=== PATIENT | male | born 1970 | race Caucasian/White ===

== ENCOUNTER 2022-04-17 21:40 | Emergency (ER) | payer OTHER, SELFPAY ==
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
[2022-04-17 22:44] LABS: Basophils Absolute Auto 0.09 K/mm3 (0.00-0.10); Basophils Percent Auto 1.1 % (0.0-1.0); Eosinophils Absolute Auto 0.34 K/mm3 (0.02-0.50); Eosinophils Percent Auto 4.3 % (1.0-6.0); Hematocrit 44.9 % (40.0-54.0); Hemoglobin 15.3 g/dL (14.0-18.0); Immature Granulocyte Absolute 0.03 K/mm3 (0.00-0.00); Immature Granulocyte Percent A 0.4 % (0.0-0.0); Lymphocytes Percent Auto 46.4 % (18.0-42.0); Mean Corpuscular HGB Conc 34.1 g/dL (32.0-36.0); Mean Corpuscular Hemoglobin 32.8 pg (27.0-31.0); Mean Corpuscular Volume 96.4 fL (78.0-102.0); Monocytes Percent Auto 7.5 % (2.0-11.0); Neutrophils Absolute Auto 3.2 K/mm3 (1.7-7.2); Neutrophils Percent Auto 40.3 % (50.0-70.0); Platelet Count Result 212 K/mm3 (150-420); Red Blood Count 4.66 M/mm3 (4.70-6.10)
--- NOTE | 2022-04-17 22:49 | PC.NURSE ---
Pt agreed to lab draw and provided urine sample while in the restroom. Pt continues to refuse to change into scrubs. Pt continues to refuse physical examination and vitals. Pt continuously making remarks that he is a stupid loser and it's all over for him because this is his 4th DUI.
[2022-04-17 23:06] LABS: Alanine Aminotransferase 26 U/L (16-63); Albumin Level 3.9 g/dL (3.4-5.0); Alkaline Phosphatase 70 U/L (46-116); Anion Gap 11 mmol/L (8-16); Aspartate Amino Transferase 21 U/L (15-37); Bilirubin,Total 0.4 mg/dL (0.00-1.00); Blood Urea Nitrogen 14 mg/dL (7-18); Calcium 8.7 mg/dL (8.5-10.1); Carbon Dioxide 25 mmol/L (21-32); Chloride 106 mmol/L (98-108); Estimated Glomerular Filt Rate > 60; Glucose 105 mg/dL (70-99); Osmolality Calculated 294 mOsm/kg (285-295); Potassium 3.6 mmol/L (3.5-5.1); Sodium 142 mmol/L (136-145); Thyroid Stimulating Hormone 2.72 uIU/mL (0.36-3.74); Total Protein 7.9 g/dL (6.4-8.2)
[2022-04-17 23:07] LABS: Ethanol 279 mg/dL (0-6)
[2022-04-17 23:08] VITALS: BP 137/93; PULSE 95; RESP 16; TEMP 36.6; O2SAT 98
[2022-04-17 23:08] LABS: Amphetamine Screen Urine Negative (Negative); Barbiturate Screen Urine Negative (Negative); Benzodiazepines Screen Urine Negative (Negative); Cannabinoid Screen Urine Positive (Negative); Cocaine Screen Urine Negative (Negative); Methadone Screen Urine Negative (Negative); Opiate Screen Urine Negative (Negative); Phencyclidine Screen Urine Negative (Negative)
--- NOTE | 2022-04-17 23:09 | PC.NURSE ---
REPORT FROM KRISTIE CRUZ IS SITTING WITH PT. PT HAS LIGHTS OFF, BLANKET, TV ON AND EYES CLOSED LYING ON STRETCHER. VITAL SIGNS OBTAINED, PT STATES HE DOES NOT NEED THEM, HOWEVER DOES ALLOW THEM TO BE OBTAINED WITHOUT INCIDENT. WATER WAS PROVIDED. LAB REPORTS ETOH OF 279 AT THIS TIME, ERP IS NOTIFIED. NAD NOTED. WILL CONTINUE TO MONITOR.
--- NOTE | 2022-04-18 00:44 | PC.NURSE ---
PT IS SLEEPING ON STRETCHER IN EXAM ROOM AT THIS TIME. SITTER AT BEDSIDE. NAD NOTED. PT IS TO HAVE ETOH REDRAWN AROUND 0700. WILL CONTINUE TO MONITOR.
--- NOTE | 2022-04-18 03:52 | PC.NURSE ---
NO CHANGE IN PT STATUS AT THIS TIME. NAD NOTED. SITTER REMAINS AT BEDSIDE, PT RESTING WITHOUT DISTRESS. WILL CONTINUE TO MONITOR.
[2022-04-18 04:07] VITALS: BP 137/96; PULSE 88; RESP 16; O2SAT 98
--- NOTE | 2022-04-18 04:07 | PC.NURSE ---
PT UP TO RR WITH STEADY GAIT, PT SITS IN CHAIR IN RR WHEN FINISHED AND REFUSED TO ANSWER STAFF. STAFF ENTERED RR TO FIND PT SITTING IN THE CHAIR. PT THEN RETURNS TO HIS EXAM ROOM WITHOUT INCIDENT, ASKS FOR WATER AND IT WAS PROVIDED, THEN PT REFUSED IT. PT VS OBTAINED WITHOUT DIFFICULTY, PT IS LYING BACK ON STRETCHER AT THIS TIME WITH BLANKETS. PT DECLINES ANY ADDITIONAL NUTRITION, BLANKETS AT THIS TIME. SITTER AT BEDSIDE. PT GETS UP OFF STRETCHER, DRINKING WATER AND PACING IN EXAM ROOM. PT REPORTS NONE OF THIS MATTERS ANYWAY, I WILL BE IN 10 MINUTES. WHEN ASKED WHY HE WOULD BE HE REPORTS I WILL KILL MYSELF WHEN ASKED HOW, I DON'T HAVE ANY IDEA, I WILL FIGURE SOMETHING OUT. PT IS NOT ANGRY OR AGITATED. PT ASKS WHY ARE YOU BEING SO NICE TO ME? I AM A LOOSER. PT IS SPEAKING WITH SITTER AT THIS TIME, AND HE LIES BACK ON HIS STRETCHER. WILL CONTINUE TO MONITOR.
--- NOTE | 2022-04-18 04:33 | PC.NURSE ---
PT RETURNS TO RR, LOCKS DOOR. STAFF ENTERS RR TO FIND PT STANDING IN THE ROOM WITH HANDS IN HIS POCKETS AND LIGHTS OFF. WHEN ASKED PT TO CHANGE INTO SCRUBS, PT REFUSES AND RETURNS TO EXAM ROOM. PT IS ADVISED OF POLICIES AND PLAN OF CARE. PT CONTINUES TO REFUSE TO CHANGE INTO SCRUBS. PER PREVIOUS RN, JABIER SEARCHED PT, REMOVED ALL OTHER BELONGINGS AND PT IS IN HIS OWN T-SHIRT AND PANTS. SHOES, PHONE AND OTHER BELONGINGS ARE SECURED IN [facility] ROOM. PT IS UP AND DOWN ON STRETCHER, PACING IN ROOM AT TIMES. SITTER REMAINS AT BEDSIDE. WILL CONTINUE TO MONITOR. PT REPORTS HE HAS NEVER ATTEMPTED TO HARM HIMSELF BEFORE, HAS NOT SEEN A COUNSELOR OR PSYCHIATRIST, PT REPORTS HE DOES NOT HAVE A PLAN. I HAVE LIVED WITH BEING AN ALCOHOLIC MY ENTIRE LIFE AND I AM TIRED OF IT. PT WAS BROUGHT IN BY JABIER RODRÍGUEZ AFTER GETTING HIS 4TH DUI. PT REMAINS QUIET, PT APPEARS TO BE A LITTLE ANXIOUS AT THIS TIME. WILL CONTINUE TO MONITOR.
--- NOTE | 2022-04-18 05:40 | PC.NURSE ---
PT CONTINUES TO BE RESTLESS, SITTER AT BEDSIDE. PT CELL PHONE ALARM WAS SOUNDING, ASKED IF HE WOULD LIKE THIS RN TO CALL HIS WORK, PT DECLINES. BELONGINGS LIST COMPLETED. PT CONTINUES TO AVOID AND REFUSE TO CHANGE INTO SCRUBS. PT WANTED TO GO OUTSIDE TO SMOKE, OFFERED NICOTINE PATCH, HE DECLINED. PT DECLINES ANY MEDICATION AT THIS TIME. PT IS AWARE OF PLAN OF CARE. WILL CONTINUE TO MONITOR.
--- NOTE | 2022-04-18 06:13 | PC.NURSE ---
PT CONTINUES TO BE RESTLESS. PT IS REPEATEDLY REACHING BEHIND STRETCHER, WHEN ASKED ABOUT THIS, HE STATES HE IS NOT DOING ANYTHING. MULTIPLE TRIPS INTO PATIENTS ROOM, AND WHENEVER THE SITTER IS NOT LOOKING DIRECTLY AT HIM, HE REPEATS REACHING BEHIND. UPON EXAMINATION, NO LOOSE PARTS TO THE STRETCHER ARE NOTED. PT IS ADVISED, FOR HIS SAFETY THE STRETCHER CAN BE REMOVED AND HE CAN HAVE THE MATTRESS ON THE FLOOR. WILL CONTINUE TO MONITOR.
--- NOTE | 2022-04-18 06:32 | PC.NURSE ---
PT HAS CHANGED INTO SCRUBS, ALL BELONGINGS ARE SECURED. LAB AT BEDSIDE AT THIS TIME. SITTER REMAINS AT BEDSIDE. WILL CONTINUE TO MONITOR. PT IS EXHIBITING MANIPULATIVE BEHAVIOR, ASKED SITTER FOR WATER, SOON SHE TURNED HER HEAD, HE REACHED BACK AT THE STRETCHER, UPON EXAMINATION AT THIS POINT, PT WAS ABLE TO GET A SCREW LOOSE, THE SCREW WAS REMOVED FROM THE EXAM ROOM, ADVISED IF THIS BEHAVIOR CONTINUED, STRETCHER WOULD BE REMOVED.
--- NOTE | 2022-04-18 06:51 | PC.NURSE ---
ERP WAS AT BEDSIDE TO REASSESS PT, HE CONTINUES TO REPORT YOU ARE JUST WAISTING YOUR TIME, I AM GONNA DO IT PT REPORTS HE HAS NO PLAN. SITTER AT BEDSIDE. PT IS SITTING ON STRETCHER AT THIS TIME. WILL CONTINUE TO MONITOR.
[2022-04-18 06:52] LABS: Ethanol 155 mg/dL (0-6)
--- NOTE | 2022-04-18 07:07 | PC.NURSE ---
STRETCHER REMOVED AND MATTRESS ON THE FLOOR AT THIS TIME, DUE TO PT CONTINUING TO ATTEMPT TO REMOVE THE SCREWS FROM THE STRETCHER TO HARM HIMSELF. SITTER AT BEDSIDE. REPORT TO AGUSTINA LUJAN.
[2022-04-18 07:15] VITALS: BP 153/94; PULSE 104; RESP 20; O2SAT 94
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
--- NOTE | 2022-04-18 08:55 | PC.NURSE ---
0845 RN sitting with pt, sitter break given. pt states i just need a few seconds alone . explained to pt will not be alone, sitter at all times and/or observation per camera will be continuous. rubber gloves removed by pt, states making my hands sweat . gloves removed from room. explained to pt will need to see hands at all times. hiding with pillow. explained if does not comply, pillow will also be removed from the room for pt safety.
--- NOTE | 2022-04-18 09:39 | PC.NURSE ---
pt pacing in room, to bathroom frequently with sitter outside of door. pt gotten breakfast tray in which he refused. did drink coffee. will repeat etoh level at 10 am
--- NOTE | 2022-04-18 11:13 | PC.NURSE ---
pt continues pacing in room with sitter in room. fresh cup of coffee and chair in room per pt request. pt watching tv at times. awaiting etoh redraw level.
[2022-04-18 11:27] LABS: Ethanol 75 mg/dL (0-6)
[2022-04-18 12:16] VITALS: BP 151/100; PULSE 111; RESP 18; TEMP 36.6; O2SAT 95
--- NOTE | 2022-04-18 12:17 | PC.NURSE ---
pt removed bandaid and again scraping at left wrist with fingernail , observed on camera. pt staring at camera while doing it. RN to room, pt continues pacing in room. instructed to stop scraping wrist with fingernail. bandaid reapplied to wrist
--- NOTE | 2022-04-18 13:02 | PC.NURSE ---
[facility] staff, lanre barkley here for psych eval. pt continues pacing in rooms
--- NOTE | 2022-04-18 13:34 | PC.NURSE ---
counselor in with patient for eval. pt remains pacing in room throughout eval process.
[2022-04-18] MEDS: ONDANSETRON HCL ODT 4 MG TABLET PO ×2 (14:48→23:04)
--- NOTE | 2022-04-18 14:49 | PC.NURSE ---
Addendum entered by Rick Wright RN 04/18/22 14:50: pt continues pacing in room since 929 , will not sit or lay down. complaint of nausea. encouraged to sit or lay for awhile. pt refused. Original Note: pt continues pacing in room , will not sit or lay down.
--- NOTE | 2022-04-18 14:51 | PC.NURSE ---
pt chart faxed to [facility] for psych admission. awaiting call back for placement.
[2022-04-18 14:52] VITALS: BP 142/98; PULSE 101; RESP 20; TEMP 36.7; O2SAT 97
--- NOTE | 2022-04-18 15:12 | PC.NURSE ---
pt speaking with maximo, marketing research coordinator at [facility].
--- NOTE | 2022-04-18 15:54 | PC.NURSE ---
pt continues pacing in room, back to bathroom with sitter for observation. continues on camera observation at nurses station. chart faxed to jennifer at [facility].
--- NOTE | 2022-04-18 16:34 | PC.NURSE ---
spoke with maximo at [facility], requesting pt sign voluntary admission. pt agrees with voluntary admission , form signed. requested covid testing. pt agreed to swab. swab sent to lab. awaiting results.
--- NOTE | 2022-04-18 16:35 | PC.NURSE ---
meal offered to pt. pt refused. pt states i really dont have an appetite. denies nausea at this time.
[2022-04-18 17:06] LABS: Influenza A QL RT-PCR Negative (Negative); Influenza B QL RT-PCR Negative (Negative); RSV RNA, RT-PCR Negative (Negative); SARS-CoV-2 RNA PCR Negative (Negative)
--- NOTE | 2022-04-18 18:03 | PC.NURSE ---
spoke with maxiom at [facility]. pt to be admitted for dr ferrer. pt is to go to [facility] after 1030pm for an arrival after 1100pm. attempted to call report. per nursing lubrication supervisor, call back after 1000 pm to give report. pt and notified of same.
--- NOTE | 2022-04-18 18:31 | PC.NURSE ---
pt laying down on matress. warm blanket given with direct vision of sitter in door way. camera remains on for direct vision of pt from nurses desk
--- NOTE | 2022-04-18 19:01 | PC.NURSE ---
REPORT TO [facility]
--- NOTE | 2022-04-18 19:15 | PC.NURSE ---
Care resumed, spoke c pt about POC, he is cooperative at this time, he has a sad affect and not wanting to talk much, sitting on mattress on floor c a blanket and watching TV, Pt then will get up and pace room. Pt asked if he would like a mild antianxiety tablet as he seems anxious. Pt is agreeable to taking a pill now to help him relax a bit. Call placed to Dr Marino, order obtained.
[2022-04-18] MEDS: LORazepam (*CRX) 0.5 MG TABLET PO (19:23)
--- NOTE | 2022-04-18 19:32 | PC.NURSE ---
Pt remains under close obs., sitter at bedside, see Suicide obs flowsheet documentation.
--- NOTE | 2022-04-18 20:16 | PC.NURSE ---
Call received from [facility], report received that pt may not be able to be transferred tonight as they have no staff. May have to await til AM for transfer. They will re=evaluate staffing at around midnight and call back if pt is able to be accepted for transfer tonight. Pt is sleeping at this time c sitter remaining at bedside.
--- NOTE | 2022-04-18 21:32 | PC.NURSE ---
Pt sleeping, sitter at bedside.
[2022-04-18] MEDS: chlordiazePOXIDE (*CRX) 5 MG CAPSULE 10 MG PO (22:20)
--- NOTE | 2022-04-18 22:23 | PC.NURSE ---
Pt up again pacing room, states he can't sleep and appears anxious. Pt reports being a daily drinker. Order obtained for Librium. Pt took meds s difficulty. Sitting on mattress on floor watching TV, then up pacing again. Pt has sitter at bedside.
--- NOTE | 2022-04-18 23:06 | PC.NURSE ---
Pt in BR, nauseated, pacing room. Zofran ODT given as per order. Pt back to mattress to rest. VSS.
[2022-04-18 23:07] VITALS: BP 138/85; PULSE 88; RESP 18; TEMP 36.6; O2SAT 99
--- NOTE | 2022-04-19 00:08 | PC.NURSE ---
Pt report called to [facility], accepted for transfer to [facility]. Pt resting at this time, VSS. Addison remains at bedside.
[2022-04-19 00:09] VITALS: BP 138/74; PULSE 80; RESP 18; TEMP 36.5; O2SAT 99
--- NOTE | 2022-04-19 00:27 | PC.NURSE ---
Call page placed for [facility] for pt transfer.
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
== END 2022-04-19 00:50 ==
PROVIDERS: Emergency Medicine; Emergency Provider Emergency Medicine
DX: F10.10 Alcohol abuse, uncomplicated (principal); Y90.8 Blood alcohol level of 240 mg/100 ml or more; R45.851 Suicidal ideations; I10 Essential (primary) hypertension; F32.A Depression, unspecified; F17.210 Nicotine dependence, cigarettes, uncomplicated; F12.90 Cannabis use, unspecified, uncomplicated; Z20.822 Contact with and (suspected) exposure to COVID-19
CPT/HCPCS: 36415; 80053; 80307; 84443; 85025; 87637; 99285; A9270

== ENCOUNTER 2023-09-16 14:31 | Emergency (ER) | payer OTHER, SELFPAY ==
--- NOTE | ~2023-09-16 | CT_ITS ---
EXAMINATION: CT brain wo con DATE: 09/16/2023 14:52 INDICATION: Head injury. TECHNIQUE: Computed tomography (CT) of the head was performed without intravenous contrast. The mA wa s adjusted according to patient size. Iterative reconstruction technique was employed. The dose-lengt h product was 605.33 mGy-cm. COMPARISON: None FINDINGS: There is no intracranial hemorrhage, acute infarction, or abnormal intracranial mass lesion . The ventricles are normal in size. There is mild mucosal thickening in the paranasal sinuses. The m astoid air cells are normal. The orbits are normal. IMPRESSION: 1. Normal brain. Reviewed, dictated and finalized at location A. IMPRESSION: 1. Normal brain.
--- NOTE | ~2023-09-16 | CT_ITS ---
EXAMINATION: CT orbit BI wo con DATE: 09/16/2023 14:52 INDICATION: Left eye pain. Injury. TECHNIQUE: Computed tomography (CT) of the orbits was performed without intravenous contrast. Automat ed exposure control and iterative reconstruction technique were employed. The dose-length product was 140.83 mGy-cm. COMPARISON: None. FINDINGS: The ocular globes and extraocular muscles are normal. There is no abnormal mass. There is l eft cheek soft tissue swelling. Bone alignment is normal. No fracture. IMPRESSION: 1. No fracture. Reviewed, dictated and finalized at location A. IMPRESSION: 1. No fracture.
[2023-09-16 14:31] VITALS: BP 131/97; PULSE 108; RESP 16; TEMP 36.9; O2SAT 96
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
[2023-09-16 15:26] VITALS: BP 120/90; PULSE 95; RESP 16; TEMP 36.7; O2SAT 93
== END 2023-09-16 15:26 | disposition home or self-care (01) ==
LOC: CHSED 15:26
PROVIDERS: Emergency Provider Emergency Medicine; PCP Internal Medicine
DX: H11.32 Conjunctival hemorrhage, left eye (principal); S05.02XA Injury of conjunctiva and corneal abrasion without foreign body, left eye, initial encounter; S00.12XA Contusion of left eyelid and periocular area, initial encounter; S00.93XA Contusion of unspecified part of head, initial encounter; Y04.2XXA Assault by strike against or bumped into by another person, initial encounter; I10 Essential (primary) hypertension; F32.A Depression, unspecified
CPT/HCPCS: 70450; 70480; 99284

== ENCOUNTER 2024-02-10 01:29 | Day surgery (SDC) | payer OTHER, SELFPAY ==
[2024-02-03 09:04] VITALS: BMI 30.9
[2024-02-10 10:58] VITALS: BP 124/101; PULSE 84; RESP 20; TEMP 36; O2SAT 98
--- NOTE | 2024-02-10 11:07 | WPDANESEPPF ---
Anes - Initial Pre Proc Eval Procedure: Operation Date: 02/10/24 11:30 Proposed Procedures p Screening Colonoscopy - Baldomero Prajapati DO Date/Time: 02/10/24 11:07 Surgeon: Baldomero Prajapati DO Pre Op Diagnosis: Screening for malignant neoplasm of colon Patient Data Age: 53 Gender: M Height: 1.78 m Weight: 97.1 kg Last Vital Signs Temp 36.0 C L 02/10/24 10:58 Pulse 84 02/10/24 10:58 Resp 20 02/10/24 10:58 BP 124/101 H 02/10/24 10:58 Pulse Ox 98 02/10/24 10:58 O2 Del Method Room Air 02/10/24 10:58 Allergies Allergy/AdvReac Type Severity Reaction Status Date / Time No Known Allergies Allergy Verified 02/10/24 10:56 Home Medications Medication Instructions Recorded Confirmed Type amlodipine 10 mg tablet 10 mg PO DAILY 12/11/21 02/03/24 History escitalopram oxalate 10 mg tablet 10 mg PO DAILY 12/11/21 02/03/24 History metoprolol tartrate 25 mg tablet 25 mg PO BID 12/11/21 02/03/24 History mirtazapine 15 mg tablet 15 mg PO DAILY 12/11/21 02/03/24 History diclofenac sodium 75 mg 75 mg PO DAILY PRN Pain 02/03/24 02/03/24 History tablet,delayed release hydroxyzine HCl 25 mg tablet 25 mg PO TID 02/03/24 02/10/24 History Patient hx anesthesia problems: none Family hx anesthesia problems: none Results Review: All pre-operative results and documents have been reviewed as part of the pre-operative evaluation. [facility] Past Medical History Medical History Depression ETOH abuse HTN (hypertension) Overweight (BMI 25.0-29.9) Smoker Surgical History Surgical History (Updated 02/10/24 @ 11:07 by Magdy Ramirez MD) H/O arthroscopic knee surgery Social History Social History Years smoked: 30 Smoking status: Current every day smoker Tobacco type: cigarettes Alcohol intake: current Drinks per week: 24 Alcohol use details: BEERS Substance use: current Substance use type: marijuana Other substance usage details: DAILY Living arrangements: with family Spiritual care concerns: No Anes - Eval Final PreProcedure Day of Procedure 02/10/24 11:07 Patient weight: obese Heart: regular rate and rhythm Lungs: clear to auscultation Airway: Mallampati scale class II Neurological: alert and oriented Last oral intake: >/= 8 hours ASA classification: III Emergent: no Anesthetic plan: proceed Anesthesia type and monitoring: general GIVS and standard monitoring Results Review: All pre-operative results and documents have been reviewed as part of the pre-operative evaluation. Informed Consent: The patient's anesthetic plan and its attendant risks and benefits were discussed with the patient/family/POA. Questions were solicited and answers provided to the satisfaction of the patient/family/POA.
[2024-02-10] MEDS: LACTATED RINGERS 1,000 ML 150 ML IV CONT (11:08)
--- NOTE | 2024-02-10 12:09 | PM.IMHP ---
H&P: HPI History of Present Illness Date/Time: 02/10/24 12:09 Chief Complaint: screening for colorectal cancer Narrative: this is a 53-year-old man who presents for colonoscopy. He has never had a colonoscopy before. He states that he does occasionally notice blood in the stool. He denies any family history of colon cancer. Review of Systems Review of Systems: All systems reviewed & are unremarkable except as noted in HPI and below Constitutional: Constitutional: Denies chills, Denies fever(s), Denies headache(s) and Denies weight loss Eyes: Eyes: Denies change in vision ENT: Denies dizziness, Denies headache(s), Denies neck mass and Denies throat swelling Cardiovascular: Cardiovascular: Denies chest pain, Denies lightheadedness and Denies dyspnea Respiratory: Respiratory: Denies cough, Denies dyspnea and Denies wheezing Gastrointestinal: Gastrointestinal: Denies abdominal pain, Denies change in bowel habits, Denies nausea and Denies vomiting Genitourinary: Genitourinary: Denies hematuria and Denies dysuria Musculoskeletal: Musculoskeletal: Reports as per HPI Integumentary/Breasts: Skin/Breast: Reports as per HPI Neurologic: Denies dizziness and Denies headache(s) Allergic/Immunologic: Allergic/Immunologic: Denies throat swelling and Denies wheezing PMF Past Medical History Medical History Depression ETOH abuse HTN (hypertension) Overweight (BMI 25.0-29.9) Smoker Surgical History Surgical History (Updated 02/10/24 @ 11:07 by Magdy Ramirez MD) H/O arthroscopic knee surgery Social History Social History Years smoked: 30 Smoking status: Current every day smoker Tobacco type: cigarettes Alcohol intake: current Drinks per week: 24 Alcohol use details: BEERS Substance use: current Substance use type: marijuana Other substance usage details: DAILY Living arrangements: with family Spiritual care concerns: No Meds Home Medications and Allergies Home Medications Medication Instructions Recorded Confirmed Type amlodipine 10 mg tablet 10 mg PO DAILY 12/11/21 02/03/24 History escitalopram oxalate 10 mg tablet 10 mg PO DAILY 12/11/21 02/03/24 History metoprolol tartrate 25 mg tablet 25 mg PO BID 12/11/21 02/03/24 History mirtazapine 15 mg tablet 15 mg PO DAILY 12/11/21 02/03/24 History diclofenac sodium 75 mg 75 mg PO DAILY PRN Pain 02/03/24 02/03/24 History tablet,delayed release hydroxyzine HCl 25 mg tablet 25 mg PO TID 02/03/24 02/10/24 History Allergies Allergy/AdvReac Type Severity Reaction Status Date / Time No Known Allergies Allergy Verified 02/10/24 10:56 Vital Signs Vital Signs - 24 hr 02/10/24 10:58 Temperature 96.8 F L Pulse Rate 84 Respiratory Rate 20 Blood Pressure 124/101 H Pulse Oximetry 98 Oxygen Delivery Room Air Exam Const: General: no acute distress and alert Orientation/consciousness: patient oriented x3 HENMT: Head: normocephalic and atraumatic Ears: hearing grossly normal bilaterally Face/Nose/Sinus: Normal nares present Mouth: Yes Normal oral and palatal mucosa present Eyes: Periorbital: periorbital findings normal Sclera: sclerae normal EOM: EOMs intact bilaterally Neck: Neck: normal visual inspection, no lymphadenopathy and trachea midline Chest: Chest palpation & inspection: normal inspection of the chest Resp: Effort & Inspection: normal respiratory effort Auscultation: clear to auscultation bilaterally Cardio: Jugular venous distension: no JVD Rate: regular rate Rhythm: regular rhythm Heart sounds: S1 normal heart sound present and S2 normal heart sound present Peripheral pulses: Peripheral pulses 2+ throughout GI: Inspection: normal to inspection GI Palp: Yes Soft to palpation, No Tenderness to palpation present (GI), No Guarding due to palpation present (GI) and No Rebound tenderness present Percussion: Yes normal to percussion Auscultation: normal bowel sounds : General: Yes no CVA tenderness Back/Spine/Pelvis: Back: no CVA tenderness Neuro: General: patient oriented x3, no focal motor deficits and CN's II-XI intact bilaterally Cognition (Neuro): normal cognition Speech: normal speech Motor exam (neuro): 5/5 motor strength present throughout Extrem: General: capillary refill normal and no clubbing, cyanosis or edema Assessment and Plan Assessment and plan (1) Screening for colorectal cancer: Code(s): Z12.11 - Encounter for screening for malignant neoplasm of colon; Z12.12 - Encounter for screening for malignant neoplasm of rectum Status: Acute Assessment and Plan: I have recommended colonoscopy. I have discussed the procedure, risks, benefits, and alternatives. Questions were answered. Patient is agreeable to proceed.
[2024-02-10 12:28] VITALS: BP 100/73; PULSE 75; RESP 21; O2SAT 96
[2024-02-10 12:38] VITALS: BP 111/78; PULSE 70; RESP 27; O2SAT 98
[2024-02-10 12:48] VITALS: BP 124/94; PULSE 69; RESP 14; O2SAT 99
--- NOTE | 2024-02-10 14:30 | SUR.PREOP ---
Pt. reports having 32 ounces of water this morning at 0730, DrFausto and anesthesia team aware, will continue to monitor.
== END 2024-02-10 12:55 | disposition home or self-care (01) ==
PROVIDERS: PCP Internal Medicine; Visit Provider Surgery
PROC: 0DJD8ZZ Inspection of Lower Intestinal Tract, Via Natural or Artificial Opening Endoscopic (ICD-10-PCS; CPT 45378; principal; 2024-02-10 11:30)
DX: Z12.11 Encounter for screening for malignant neoplasm of colon (principal); D12.8 Benign neoplasm of rectum; F32.A Depression, unspecified; I10 Essential (primary) hypertension; F17.210 Nicotine dependence, cigarettes, uncomplicated; F12.90 Cannabis use, unspecified, uncomplicated; E66.9 Obesity, unspecified; Z68.30 Body mass index [BMI] 30.0-30.9, adult; Z98.890 Other specified postprocedural states
CPT/HCPCS: 45385; 88305; J2704; J7120